=== PATIENT | male | born 1995 | race Caucasian/White ===

== ENCOUNTER 2019-04-12 11:22 | Emergency (ER) | payer OTHER ==
[~2019-04-12] VITALS: Ht 154.9 cm; Wt 81.6 kg
== END 2019-04-12 14:01 | disposition home or self-care (01) ==
LOC: ER 11:22
DX: S61.022A Laceration with foreign body of left thumb without damage to nail, initial encounter (principal); W26.0XXA Contact with knife, initial encounter; Y93.89 Activity, other specified; Y92.010 Kitchen of single-family (private) house as the place of occurrence of the external cause; Y99.8 Other external cause status